=== PATIENT | female | born 2000 | race African-American/Black ===

== ENCOUNTER 2020-12-18 19:37 | Emergency (ER) | payer OTHER ==
[~2020-12-18 19:37] MED LIST: BACTRIM DS TAB1 EACH PO
[2020-12-18] MEDS ORDERED: IBUPROFEN800 MG PO (23:45)
[2020-12-18] MEDS ORDERED: POLYTRIM EYE DR10 ML EYEBOTH (23:45)
[2020-12-18] MEDS ORDERED: AUGMENTIN 875-1 EACH PO (23:45)
[2020-12-18] MEDS ORDERED: NORCO 5-325 TA1 EACH PO (23:45)
[2020-12-18] MEDS ORDERED: CLEAR EYES REDNE6 ML EYEBOTH (23:45)
== END 2020-12-18 23:55 | disposition home or self-care (01) ==
LOC: FER 19:37
DX: H10.33 Unspecified acute conjunctivitis, bilateral (principal); F17.210 Nicotine dependence, cigarettes, uncomplicated
CPT/HCPCS: 70450